=== PATIENT | male | born 1965 | race Caucasian/White ===

== ENCOUNTER 2019-03-21 02:04 | Emergency (ER) | payer SELFPAY ==
[~2019-03-21] VITALS: Ht 170.2 cm; Wt 71.2 kg
--- NOTE | 2019-03-21 02:21 | NUR ---
Note avone in EDM - 03/21/19 at [address] TO ER BED 9. INTOXICATED, AAOX2. NO RESP DISTRESS NOTED. PER EMS REPORT, PT WAS F[facility] FACE [facility] CUR[facility] BY. PT NOTED WITH BLEEDING NOSE. PT NOT ANSWERING QUESTION AND GIVING DIFFERENT NAMES. MD AT BEDSIDE FOR EVAL.
--- NOTE | 2019-03-21 02:21 | NUR ---
ODALIS FROM STREET. TO ER BED 9. INTOXICATED, AAOX2. NO RESP DISTRESS NOTED. DISHEVELLED AND UNKEPT. PER EMS REPORT, PT WAS FOUND FACE DOWN ON A CURB AT [facility] [place] BY A PASSER BY. PT NOTED BLOODY NOSE WHICH IS NOT ACTIVELY BLEEDING AND ABRASSION ON BRIDGE OF NOSE. PT NOT ANSWERING QUESTION AND GIVING DIFFERENT NAMES. MD AT BEDSIDE FOR EVAL. EMT AT BESIDE OF WOUND CLEANING.
[2019-03-21 02:30] LABS: BASOPHILS % (AUTO) 0.2 % (0.0-2.0); HEMATOCRIT 36 % (39-51); HEMOGLOBIN 12.4 g/dL (13.5-17.5); LYMPHOCYTES # (AUTO) 0.3 /CMM (0.8-4.8); LYMPHOCYTES % (AUTO) 3.6 % (20.0-44.0); MEAN CORPUSCULAR HGB CONC 35 g/dl (31.0-36.0); MEAN CORPUSCULAR VOLUME 95 fL (80-96); MONOCYTES # (AUTO) 0.9 /CMM (0.1-1.30); MONOCYTES % (AUTO) 9.7 % (2.0-12.0); NEUTROPHILS # (AUTO) 7.7 /CMM (1.8-8.9); NEUTROPHILS % (AUTO) 86.5 % (43.0-81.0); PLATELET COUNT (AUTO) 107 /CMM (150-450); RED BLOOD CELL COUNT(AUTO) 3.79 MIL/uL (4.5-6.0); WHITE BLOOD COUNT (AUTO) 8.9 K/uL (4.3-11.0)
[2019-03-21] MEDS ORDERED: IV NS 0.9% 500 ML BAG IV ONE (02:30)
[2019-03-21 02:35] LABS: CALCIUM, SERUM 8.9 mg/dL (8.5-10.1); CARBON DIOXIDE 24 mmol/L (21-32); CHLORIDE 96 mmol/L (98-107); GLUCOSE 127 mg/dL (74-106); POTASSIUM 4.4 mmol/L (3.5-5.1); SODIUM SERUM 131 mmol/L (136-145); UREA NITROGEN, BLOOD 18 mg/dL (7-18)
--- NOTE | 2019-03-21 02:36 | NUR ---
PT TO RADIOLOGY ON [facility]
[2019-03-21 02:42] LABS: ACETAMINOPHEN 0 ug/ml (10-30); ALANINE AMINOTRANSFERASE 93 U/L (12-78); ALBUMIN 3.3 g/dL (3.4-5.0); ALCOHOL, BLOOD < 3 mg/dL (0-0); ALKALINE PHOSPHATASE 151 U/L (46-116); ASPARTATE AMINOTRANSFERASE 131 U/L (15-37); BILIRUBIN,DIRECT 0.4 mg/dL (0.0-0.2); BILIRUBIN,TOTAL 0.9 mg/dL (0.2-1.0); SALICYLATE 1.1 mg/dL (2.8-20.0); TOTAL PROTEIN, SERUM 7.6 g/dL (6.4-8.2)
[2019-03-21 04:05] LABS: THYROID STIMULATING HORMONE 1.711 uIU/mL (0.358-3.74)
--- NOTE | 2019-03-21 05:33 | NUR ---
PT AWAKE AND MORE ALERT. PT STATES HIS NAME WENDY DASH 65
[2019-03-21] MEDS ORDERED: IBUPROFEN 600 MG TABLET PO ONE ×2 (05:39→06:00)
--- NOTE | 2019-03-21 05:53 | NUR ---
PT COMPLAINED OF FACE PAIN 01/19. MD MADE AWARE. RECEIVED VERBAL ORDER OT GIVE MOTRIN 600MG PO X1. NOTED AND CARRIED OUT
--- NOTE | 2019-03-21 07:15 | NUR ---
RECVD PATIENT IN BED ASLEEP, NO ACUTE DISTRESS NOTED. WILL CONITNUE TO MONITOR
--- NOTE | 2019-03-21 09:04 | NUR ---
WANDED BY SECURITY ANASTASIIA
--- NOTE | 2019-03-21 09:55 | NUR ---
ASSISTED PATIENT TO BATHROOM. PATIENT IS ABLE TO AMBULATE
--- NOTE | 2019-03-21 09:57 | NUR ---
BREAKFAST AT BEDSIDE
--- NOTE | 2019-03-21 10:30 | NUR ---
PEARL MELENDEZ PAGED FOR HOMELESS RESOURCES
--- NOTE | 2019-03-21 11:01 | NUR ---
PEARL PAGED AGAIN
--- NOTE | 2019-03-21 11:25 | NUR ---
CARRIER WASHER PEARL AT BEDSIDE
--- NOTE | 2019-03-21 11:30 | NUR ---
Social service consult requested by Dr. Gibson for homelessness. Pt. is a 53 year old male who was brought in by rescue who is found down on the side walk. Bystanders called EMS. SW met with pt. bedside. Pt. is alert and oriented x 4. Pt. appears dirty and disheveled. Pt. states he has been homeless for the past 6 months. Pt. couldn't provide any information as to where he was staying prior to being homeless. Pt. is ambulatory with a steady gait. Pt. receives food stamps and GR. Pt. is looking for snf placement. ZOË contacted [facility] at and spoke with a male who declined to give SW his name. He informed SW to have pt. come to the snf anytime between 1:30PM - 3PM for intake. ZOË gave the information to the pt. ZOË also gave pt. the following homeless resources: [facility] located at [address] [place] [address] ; [facility], [address] [place] [place] ; [employer] [place], [address] [place] [place] ; [facility] Homeless Resource Directory which includes food stamps, transitional housing, showers and hot meals etc; Mental Health clinics such as [facility] ; [facility] ; Health clinics;[facility] and Alcohol treatment centers such as [facility], ; [facility] Substance Abuse Hotline and [facility] . Pt. was provided with a shirt and TAP card. No other social service needs are requested at this time. SW is available, if needed.
--- NOTE | 2019-03-21 11:41 | NUR ---
TAP CARD WILL BE PROVIDED TO PATIENT
--- NOTE | 2019-03-21 11:51 | NUR ---
Patient discharged to home in stable condition. Written and verbal after care instructions given. Patient verbalizes understanding of instruction.IV removed. Catheter intact and site benign. Pressure and 4x4 applied to site. No bleeding noted.
[2019-03-21 11:58] VITALS: BP 98/52
== END 2019-03-21 11:50 | disposition home or self-care (01) ==
LOC: ER 02:06 → EDBD 02:06 → ER 11:50
DX: S00.31XA Abrasion of nose, initial encounter (principal); S09.8XXA Other specified injuries of head, initial encounter; R41.82 Altered mental status, unspecified; Z59.0 Homelessness; X58.XXXA Exposure to other specified factors, initial encounter; Y93.01 Activity, walking, marching and hiking; Y92.89 Other specified places as the place of occurrence of the external cause; Y99.8 Other external cause status
CPT/HCPCS: 36415; 70450; 71045; 72125; 80048; 80076; 80307; 80329; 82962; 84443; 84484; 85025; 85730; 93005; 99284; G0480; J7040